=== PATIENT | female | born 1980 ===

== ENCOUNTER → 2017-09-09 | Emergency (ER) | payer OTHER ==
[~2017-09-09] VITALS: Ht 157.5 cm; Wt 43.5 kg
== END | disposition home or self-care (01) ==
LOC: ER 10:21
DX: S60.221A Contusion of right hand, initial encounter (principal); S13.4XXA Sprain of ligaments of cervical spine, initial encounter; R42 Dizziness and giddiness; V49.9XXA Car occupant (driver) (passenger) injured in unspecified traffic accident, initial encounter; Y93.89 Activity, other specified; Y92.488 Other paved roadways as the place of occurrence of the external cause; Y99.8 Other external cause status